=== PATIENT | female | born 1960 | race Caucasian/White ===

== ENCOUNTER 2021-05-29 13:38 | Emergency (ER) | payer BC ==
[~2021-05-29] VITALS: Ht 162.6 cm; Wt 74.8 kg
[2021-05-29 13:58] LABS: HEMATOCRIT 41.1 % (31.2-41.9); MEAN CORPUSCULAR HEMOGLOBIN 29.1 uug (24.7-32.8); MEAN CORPUSCULAR VOLUME 84.7 fL (75.5-95.3); PLATELET COUNT (AUTO) 307 K/uL (179-408)
[2021-05-29] MEDS ORDERED: [UNRECOGNIZED DRUG - OTHER] (13:58)
[2021-05-29] MEDS ORDERED: GABAPENTIN (13:58)
[2021-05-29] MEDS ORDERED: ISOS60TA72 PO (13:58)
[2021-05-29] MEDS ORDERED: AMLODIPINE (13:58)
[2021-05-29] MEDS ORDERED: LOSARTAN (13:58)
[2021-05-29] MEDS ORDERED: LABETALOL (13:58)
[2021-05-29] MEDS ORDERED: PRALUENT (13:58)
[2021-05-29] MEDS ORDERED: ONDANSETRON 4 MG/2 ML VIAL ONE ×2 (14:02→18:00)
[2021-05-29 14:13] LABS: BILIRUBIN,DIRECT 0.1 mg/dL (0.0-0.2); BILIRUBIN,TOTAL 0.4 mg/dL (0.2-1.0); CREATININE 0.9 mg/dL (0.6-1.3); POTASSIUM 3.9 mmol/L (3.5-5.1); TOTAL PROTEIN, SERUM 7.5 g/dL (6.4-8.2)
[2021-05-29] MEDS ORDERED: ONDANSETRON 4 MG/2 ML VIAL IV ONE ×2 (15:15→17:45)
[2021-05-29] MEDS ORDERED: IV NORMAL SALINE 1000 ML BAG IV ONE (15:15)
--- NOTE | 2021-05-29 15:37 | NUR ---
Pt BIB [facility], reports pt had CP and SOB on scene, resolved upon arrival, IV 20g left hand. Pt also states she felt like BP was low and she was pale and sweaty. Upon arrival in ER, pt states all s/s resolved except for inability to take deep breath.
[2021-05-29] MEDS ORDERED: METOPROLOL SUCCINATE XL 25 MG TAB.SR.24H PO ONE ×2 (17:45→18:00)
[2021-05-29] MEDS ORDERED: NITROGLYCERIN OINT 1 GM PACKET TP ONE ×2 (17:45→18:00)
--- NOTE | 2021-05-29 17:48 | NUR ---
Pt c/o feeling "uptight," seems anxious. Also c/o returning nausea. MD informed. Repeated EKG
[2021-05-29] MEDS ORDERED: ACETAMINOPHEN 325 MG TABLET PO PRN (18:00)
[2021-05-29] MEDS ORDERED: MAGNESIUM HYDROXIDE 30 ML LIQUID UDC PO PRN (18:00)
[2021-05-29] MEDS ORDERED: Z GUARD REMEDY PASTE 57 GM TUBE TOP PRN (18:00)
[2021-05-29] MEDS ORDERED: ONDANSETRON 4 MG/2 ML VIAL IV PRN (18:00)
--- NOTE | 2021-05-29 23:28 | NUR ---
Patient does not wish to proceed with medical care recommended by Dr. Dupree. Patient given information related to possible complications, up to and including , which could occur as a result of leaving the hospital at this time. Patient verbalizes understanding of risks involved due to leaving against medical advice. Patient has signed AMA form.
[2021-05-29 23:30] VITALS: BP 127/78
[2021-05-30] MEDS ORDERED: PANTOPRAZOLE SODIUM 40 MG TABLET.DR PO SCH (07:00)
[2021-05-30] MEDS ORDERED: ASPIRIN EC 81 MG TABLET.DR PO SCH (09:00)
== END 2021-05-29 23:32 | disposition left against medical advice (07) ==
LOC: ER 13:38 → TELE3 23:19 → UNDOADMIN 23:19 → ER 23:32
DX: R07.9 Chest pain, unspecified (principal); I10 Essential (primary) hypertension; R06.02 Shortness of breath; Z20.822 Contact with and (suspected) exposure to COVID-19; E78.5 Hyperlipidemia, unspecified; I25.10 Atherosclerotic heart disease of native coronary artery without angina pectoris; Z91.013 Allergy to seafood
CPT/HCPCS: 36415; 71045; 80048; 80076; 84484 ×2; 85025; 85379; 87426; 93005 ×2; 96361; 96374; 96376; 99291; J2405 ×2; 70030-TC; A4663